=== PATIENT | male | born 1935 | race Two or more races ===

== ENCOUNTER 2020-10-06 06:48 | Inpatient (IN) | payer OTHER ==
[2020-10-06 06:55] VITALS: BMI 26.4
[2020-10-06] MEDS ORDERED: LACTATED RINGERS SOLUTION 1,000 ML/1,000 ML INFUS.BAG IV SCH (08:00)
[2020-10-06 09:02] LABS: BASO % 0.1 % (0-2.0); EOS % 0.8 % (0-4.5); HEMOGLOBIN 11.6 GM/dL (11.7-16.9); LYMPH % 4.7 % (8-40); MCH 30.6 pg (25.7-33.7); MCHC 33.2 g/dl (32.0-35.9); MEAN CELL VOLUME 92.2 fl (80-96); MEAN PLT VOLUME 8.1 fl (7.5-11.1); NEUT % 87.4 % (42.8-82.8); PLATELET COUNT 239 10^3/uL (134-434); RBC 3.79 M/mm3 (4.00-5.60); RDW 16.1 % (11.9-15.9); WHITE BLOOD COUNT 15.9 K/mm3 (4.0-10.0)
[2020-10-06 09:17] LABS: INR 1.93 (0.83-1.09); PROTHROMBIN TIME (PATIENT) 23.3 SEC (9.7-13.0)
[2020-10-06 09:20] LABS: ACTIVATED PTT 27.8 SECONDS (25.2-36.5)
[2020-10-06 09:24] LABS: CHLORIDE 110 mmol/L (98-107); SODIUM 142 mmol/L (136-145)
[2020-10-06 09:26] LABS: ANION GAP 8 MMOL/L (8-16); BLOOD UREA NITROGEN 41.3 mg/dL (7-18); CALCIUM 8.1 mg/dL (8.5-10.1); CO2 24 mmol/L (21-32); GLUCOSE,RANDOM 129 mg/dL (74-106); MAGNESIUM 2.3 mg/dL (1.8-2.4)
[2020-10-06 09:27] LABS: ALBUMIN 2.8 g/dl (3.4-5.0)
[2020-10-06 09:29] LABS: CREATININE 1.2 mg/dL (0.55-1.3); SGOT/AST 13 U/L (15-37); SGPT/ALT 11 U/L (13-61)
[2020-10-06 09:31] LABS: BILIRUBIN,TOTAL 0.8 mg/dL (0.2-1); TOT PROT 5.5 g/dl (6.4-8.2)
[2020-10-06 09:32] LABS: ALK PHOS 114 U/L (45-117)
[2020-10-06 11:27] LABS: BASO % 0.1 % (0-2.0); EOS % 0.3 % (0-4.5); HEMATOCRIT 31.7 % (35.4-49); HEMOGLOBIN 10.3 GM/dL (11.7-16.9); LYMPH % 3.2 % (8-40); MCH 30.3 pg (25.7-33.7); MCHC 32.4 g/dl (32.0-35.9); MEAN CELL VOLUME 93.6 fl (80-96); MEAN PLT VOLUME 8.3 fl (7.5-11.1); MONO % 6.1 % (3.8-10.2); NEUT % 90.3 % (42.8-82.8); PLATELET COUNT 201 10^3/uL (134-434); RBC 3.39 M/mm3 (4.00-5.60); RDW 15.9 % (11.9-15.9); WHITE BLOOD COUNT 15.3 K/mm3 (4.0-10.0)
[2020-10-06] MEDS ORDERED: ACETAMINOPHEN 325 MG TABLET (FP) PO PRN (12:34)
[2020-10-06] MEDS ORDERED: D5-1/2NS+10 MEQ KCL - 10 MEQ/1,000 ML INFUS.BAG IV SCH ×2 (13:00→13:18)
[2020-10-06] MEDS ORDERED: HUM PROTHROMBIN CPLX(PCC)4FACT 1,000 UNIT/40 ML VIAL IV ONE (13:02)
[2020-10-06] MEDS ORDERED: CARBIDOPA/LEVODOPA 25/100 TABLET (FP) ONE (13:16)
[2020-10-06] MEDS ORDERED: PANTOPRAZOLE SODIUM 40 MG VIAL ONE (13:17)
[2020-10-06] MEDS ORDERED: PANTOPRAZOLE SODIUM 40 MG VIAL IVPUSH SCH (13:45)
[2020-10-06] MEDS ORDERED: [UNRECOGNIZED DRUG - OTHER] IVPB ONE (14:00)
[2020-10-06] MEDS ORDERED: HUM PROTHROMBIN CPLX IVPB ONE (14:00)
[2020-10-06] MEDS ORDERED: CARBIDOPA/LEVODOPA 25/100 TABLET (FP) PO SCH (14:00)
[2020-10-06 14:33] LABS: IRON SERUM 73 ug/dL (50-175); TOTAL IRON BINDING CAPACITY 200 ug/dL (250-450)
[2020-10-06 15:42] VITALS: PULSE 70
[2020-10-06 15:57] LABS: URINE APPEARANCE CLEAR; URINE BILIRUBIN NEGATIVE (NEGATIVE); URINE COLOR DK YELLOW; URINE GLUCOSE (UA) NEGATIVE (NEGATIVE); URINE KETONE TRACE (NEGATIVE); URINE LEUK ESTERASE NEGATIVE (NEGATIVE); URINE NITRITE NEGATIVE (NEGATIVE); URINE PROTEIN TRACE (NEGATIVE)
[2020-10-06 17:03] VITALS: BP 118/82; TEMP 97.5
[2020-10-07] MEDS ORDERED: CHOLECALCIFEROL (VIT D3) 1,000 UNIT (25 MCG) TABLET PO SCH (10:00)
[2020-10-07] MEDS ORDERED: MAGNESIUM OXIDE 400 MG TABLET (FP) PO SCH (10:00)
[2020-10-07] MEDS ORDERED: FINASTERIDE 5 MG TABLET (FP) PO SCH (10:00)
== END 2020-10-06 17:18 | disposition short-term general hospital (02) | DRG 813 ==
LOC: JER 06:48 → JERBED 07:34
PROVIDERS: ADMIT Internal Medicine; ATTEND Internal Medicine
DX: D68.32 Hemorrhagic disorder due to extrinsic circulating anticoagulants (principal); K92.2 Gastrointestinal hemorrhage, unspecified; D62 Acute posthemorrhagic anemia; G20 Parkinson's disease; I48.91 Unspecified atrial fibrillation; Z95.0 Presence of cardiac pacemaker; D72.829 Elevated white blood cell count, unspecified; I95.9 Hypotension, unspecified
CPT/HCPCS: 36415; 36430; 36511; 71045-TC-FY; 74174-TC; 80053; 81003; 82272; 82550; 82728; 83540; 83550; 83735; 84484; 85025; 85610; 85730; 86850; 86900; 86901; 86922; 87086; 93005; 93010; 99291; 99292; C9132; C9803; P9038; P9058; U0003; U0005

== ENCOUNTER 2021-01-02 04:29 | Emergency (ER) | payer OTHER ==
[2021-01-02 04:49] VITALS: BP 174/105; PULSE 79; TEMP 98.7; BMI 31.6
== END 2021-01-02 12:59 ==
LOC: JER 04:29
DX: S09.90XA Unspecified injury of head, initial encounter (principal); W05.0XXA Fall from non-moving wheelchair, initial encounter
CPT/HCPCS: 70450-TC; 72125-TC; 93005; 93010; 99285-25

== ENCOUNTER 2021-02-03 02:42 | Inpatient (IN) | payer OTHER ==
[2021-02-03 04:22] LABS: EPI CELLS 1 /uL (0-25.1); HYALINE CASTS 3 /uL (0-3.1); PH,URINE 6.5 (5.0-8.0); URINE APPEARANCE CLEAR; URINE BACTERIA 115 /uL (0-1359); URINE BILIRUBIN NEGATIVE (NEGATIVE); URINE COLOR YELLOW; URINE GLUCOSE (UA) NEGATIVE (NEGATIVE); URINE KETONE NEGATIVE (NEGATIVE); URINE LEUK ESTERASE 3+ (NEGATIVE); URINE NITRITE NEGATIVE (NEGATIVE); URINE PROTEIN NEGATIVE (NEGATIVE); URINE RBC 17 /uL (0-23.9); URINE UROBILINOGEN 0.2 mg/dL (0.2-1.0); URINE WBC 679 /uL (0-25.8)
[2021-02-03 04:29] LABS: BASO % 0.6 % (0-2.0); EOS % 2.2 % (0-4.5); HEMATOCRIT 39.5 % (35.4-49); HEMOGLOBIN 13.1 GM/dL (11.7-16.9); LYMPH % 8.1 % (8-40); MCH 29.5 pg (25.7-33.7); MCHC 33.1 g/dl (32.0-35.9); MEAN CELL VOLUME 89.3 fl (80-96); MEAN PLT VOLUME 7.5 fl (7.5-11.1); MONO % 8.2 % (3.8-10.2); NEUT % 80.9 % (42.8-82.8); PLATELET COUNT 250 10^3/uL (134-434); RBC 4.43 M/mm3 (4.00-5.60); RDW 17.2 % (11.9-15.9); WHITE BLOOD COUNT 7.2 K/mm3 (4.0-10.0)
[2021-02-03 04:36] LABS: INR 1.27 (0.83-1.09); PROTHROMBIN TIME (PATIENT) 14.9 SEC (9.7-13.0)
[2021-02-03] MEDS ORDERED: SODIUM CHLORIDE 0.9% 500 ML INFUS.BAG IV ONE (04:36)
[2021-02-03] MEDS ORDERED: ACETAMINOPHEN 1000 MG/100 ML VIAL IVPB ONE (04:37)
[2021-02-03 04:39] LABS: ACTIVATED PTT 30.8 SECONDS (25.2-36.5)
[2021-02-03 04:48] LABS: CHLORIDE 108 mmol/L (98-107); SODIUM 140 mmol/L (136-145)
[2021-02-03 04:50] LABS: ALBUMIN 3.8 g/dl (3.4-5.0); ANION GAP 4 MMOL/L (8-16); BLOOD UREA NITROGEN 24.9 mg/dL (7-18); CALCIUM 9.2 mg/dL (8.5-10.1); CO2 29 mmol/L (21-32); GLUCOSE,RANDOM 92 mg/dL (74-106)
[2021-02-03 04:53] LABS: CREATININE 1.1 mg/dL (0.55-1.3); SGPT/ALT 8 U/L (13-61)
[2021-02-03 04:54] LABS: SGOT/AST 20 U/L (15-37)
[2021-02-03 04:55] LABS: BILIRUBIN,TOTAL 0.8 mg/dL (0.2-1); TOT PROT 7.2 g/dl (6.4-8.2)
[2021-02-03 04:56] LABS: ALK PHOS 157 U/L (45-117)
[2021-02-03] MEDS ORDERED: ACETAMINOPHEN INJECTION 100 ML IVPB ONE (05:04)
[2021-02-03] MEDS ORDERED: CEFTRIAXONE 1 GM/50 ML BAG ONE (05:05)
[2021-02-03] MEDS ORDERED: PIPERACILLIN/TAZOB 4.5 GM 4.5 GM in DEXTROSE 5%-WATER 100 ML IVPB ONE (05:39)
[2021-02-03] MEDS ORDERED: PIPERACILLIN/TAZOB 4.5 GM 4.5 GM/100 ML BAG IVPB ONE (06:22)
[2021-02-03] MEDS ORDERED: ACETAMINOPHEN 325 MG TABLET (FP) PO PRN (08:26)
[2021-02-03] MEDS ORDERED: MELATONIN 5 MG TABLETS PO PRN (08:39)
[2021-02-03] MEDS ORDERED: SENNOSIDES 8.6MG TABLET (FP) PO PRN (08:40)
[2021-02-03] MEDS ORDERED: MAGNESIUM OXIDE 400 MG TABLET (FP) ONE (09:07)
[2021-02-03] MEDS ORDERED: FUROSEMIDE 40 MG TABLET (FP) ONE (09:07)
[2021-02-03] MEDS ORDERED: CHOLECALCIFEROL (VIT D3) 1,000 UNIT (25 MCG) TABLET ONE (09:08)
[2021-02-03] MEDS ORDERED: CARBIDOPA/LEVODOPA 25/100 TABLET (FP) ONE (09:08)
[2021-02-03] MEDS: CHOLECALCIFEROL (VIT D3) 1,000 UNIT (25 MCG) TABLET PO SCH (09:13)
[2021-02-03] MEDS: MAGNESIUM OXIDE 400 MG TABLET (FP) PO SCH (09:13)
[2021-02-03] MEDS ORDERED: FUROSEMIDE 40 MG TABLET (FP) PO SCH (10:00)
[2021-02-03] MEDS ORDERED: FINASTERIDE 5 MG TABLET (FP) PO SCH (10:00)
[2021-02-03] MEDS: OMEGA-3 ACID ETHYL ESTERS (FATTY-ACIDS) 1 GM CAPSULE (FP) PO SCH ×2 (10:10→21:17)
[2021-02-03] MEDS: FINASTERIDE 5 MG TABLET (FP) PO SCH (11:14)
[2021-02-03] MEDS ORDERED: LOSARTAN POTASSIUM 50 MG TABLET PO SCH (17:45)
[2021-02-03] MEDS ORDERED: LOSARTAN POTASSIUM 25 MG TABLET PO SCH (18:00)
[2021-02-03 18:25] VITALS: BMI 25.2
[2021-02-03] MEDS: QUEtiapine FUMARATE 50 MG TABLET PO SCH (21:17)
[2021-02-03] MEDS: APIXABAN 2.5 MG TABLET PO SCH (21:17)
[2021-02-04] MEDS ORDERED: cefTRIAXone SODIUM 1 GM VIAL ONE (08:18)
[2021-02-04] MEDS ORDERED: DEXTROSE 5%-WATER - 50 ML IVPB ONE (08:19)
[2021-02-04] MEDS ORDERED: CEFTRIAXONE 1 GM in DEXTROSE 5%-WATER - 50 ML IVPB SCH (10:00)
[2021-02-04] MEDS: MAGNESIUM OXIDE 400 MG TABLET (FP) PO SCH ×2 (10:54→13:39)
[2021-02-04] MEDS: LOSARTAN POTASSIUM 25 MG TABLET PO SCH ×3 (10:54→21:33)
[2021-02-04] MEDS: FINASTERIDE 5 MG TABLET (FP) PO SCH ×2 (10:54→13:38)
[2021-02-04] MEDS: APIXABAN 2.5 MG TABLET PO SCH ×3 (10:54→21:33)
[2021-02-04] MEDS: OMEGA-3 ACID ETHYL ESTERS (FATTY-ACIDS) 1 GM CAPSULE (FP) PO SCH ×2 (10:54→21:33)
[2021-02-04] MEDS: CHOLECALCIFEROL (VIT D3) 1,000 UNIT (25 MCG) TABLET PO SCH ×2 (10:55→13:39)
[2021-02-04] MEDS: AMPICILLIN NA/SULBACTAM NA 1.5 GM in SODIUM CHLORIDE 100 ML IVPB SCH (18:55)
[2021-02-04] MEDS: QUEtiapine FUMARATE 50 MG TABLET PO SCH (21:33)
[2021-02-04] MEDS ORDERED: MELATONIN 5 MG TABLETS PO SCH (22:00)
[2021-02-05] MEDS ORDERED: SODIUM CHLORIDE 100 ML IVPB ONE ×2 (01:45→08:21)
[2021-02-05] MEDS ORDERED: AMPICILLIN NA/SULBACTAM NA 1.5 GM VIAL ONE ×2 (01:45→08:20)
[2021-02-05] MEDS: AMPICILLIN NA/SULBACTAM NA 1.5 GM in SODIUM CHLORIDE 100 ML IVPB SCH ×2 (02:15→10:14)
[2021-02-05 06:22] VITALS: PULSE 70
[2021-02-05 06:57] LABS: BASO % 0.8 % (0-2.0); EOS % 5.3 % (0-4.5); HEMATOCRIT 36.1 % (35.4-49); HEMOGLOBIN 12.3 GM/dL (11.7-16.9); LYMPH % 13.9 % (8-40); MCH 30.5 pg (25.7-33.7); MCHC 34.2 g/dl (32.0-35.9); MEAN CELL VOLUME 89.3 fl (80-96); MEAN PLT VOLUME 8.3 fl (7.5-11.1); MONO % 8.5 % (3.8-10.2); NEUT % 71.5 % (42.8-82.8); PLATELET COUNT 242 10^3/uL (134-434); RBC 4.04 M/mm3 (4.00-5.60); RDW 16.8 % (11.9-15.9); WHITE BLOOD COUNT 5.3 K/mm3 (4.0-10.0)
[2021-02-05 08:30] VITALS: BP 127/81; TEMP 97.7
[2021-02-05] MEDS: MAGNESIUM OXIDE 400 MG TABLET (FP) PO SCH (10:13)
[2021-02-05] MEDS: OMEGA-3 ACID ETHYL ESTERS (FATTY-ACIDS) 1 GM CAPSULE (FP) PO SCH (10:13)
[2021-02-05] MEDS: CHOLECALCIFEROL (VIT D3) 1,000 UNIT (25 MCG) TABLET PO SCH (10:13)
[2021-02-05] MEDS: APIXABAN 2.5 MG TABLET PO SCH (10:13)
[2021-02-05] MEDS: LOSARTAN POTASSIUM 25 MG TABLET PO SCH (10:14)
[2021-02-05] MEDS: FINASTERIDE 5 MG TABLET (FP) PO SCH (10:22)
[2021-02-05] MEDS ORDERED: AMOXICILLIN 500 MG CAPSULE (FP) PO SCH (14:00)
== END 2021-02-05 15:01 | disposition home or self-care (01) | DRG 690 ==
LOC: JER 02:42 → JERBED 05:40 → J4W 17:25
PROVIDERS: ADMIT Internal Medicine; ATTEND Internal Medicine
DX: N39.0 Urinary tract infection, site not specified (principal); I50.32 Chronic diastolic (congestive) heart failure; I31.8 Other specified diseases of pericardium; G20 Parkinson's disease; I48.91 Unspecified atrial fibrillation; Z79.01 Long term (current) use of anticoagulants; E78.5 Hyperlipidemia, unspecified; R55 Syncope and collapse; I11.0 Hypertensive heart disease with heart failure; C61 Malignant neoplasm of prostate; Z95.0 Presence of cardiac pacemaker; G47.00 Insomnia, unspecified; I34.0 Nonrheumatic mitral (valve) insufficiency; I35.1 Nonrheumatic aortic (valve) insufficiency; I36.1 Nonrheumatic tricuspid (valve) insufficiency; K59.00 Constipation, unspecified; S06.0X0A Concussion without loss of consciousness, initial encounter; W17.89XA Other fall from one level to another, initial encounter; Y93.89 Activity, other specified; Y92.89 Other specified places as the place of occurrence of the external cause; Y99.8 Other external cause status
CPT/HCPCS: 36415; 70450-TC; 71045-TC-FY; 71250-TC; 72125-TC; 80053; 81003; 84484; 85025; 85610; 85730; 86850; 86900; 86901; 87086; 87186; 93005; 93010; 93306-TC; 97116-GP; 97162-GP; 99285-25; C9803; J0131; U0003; U0005

== ENCOUNTER 2023-10-12 08:58 | Emergency (ER) | payer OTHER ==
[2023-10-12 09:29] VITALS: RESP 18; BMI 23.6
[2023-10-12] MEDS ORDERED: LIDOCAINE HCL 2% JELLY 11 ML TP ONE (10:39)
[2023-10-12] MEDS: LIDOCAINE HCL 2% JELLY 10 ML CARTRIDGE UR ONE (10:40)
[2023-10-12 11:41] LABS: URINE APPEARANCE TURBID; URINE BILIRUBIN NEGATIVE (NEGATIVE); URINE COLOR AMBER; URINE GLUCOSE (UA) NEGATIVE (NEGATIVE); URINE KETONE NEGATIVE (NEGATIVE)
[2023-10-12 11:42] LABS: URINE LEUK ESTERASE 4+ (NEGATIVE); URINE NITRITE POSITIVE (NEGATIVE); URINE PROTEIN 1+ (NEGATIVE)
[2023-10-12] MEDS ORDERED: CEFTRIAXONE 1 GM/50 ML BAG ONE (13:22)
[2023-10-12] MEDS: CEFTRIAXONE 1 GM in DEXTROSE 5%-WATER - 100 ML IVPB ONE (13:26)
[2023-10-12 13:43] LABS: BASO % 0.4 % (0-2.0); EOS % 4.7 % (0-4.5); HEMATOCRIT 37.9 % (35.4-49); LYMPH % 9.3 % (8-40); MCH 32.3 pg (25.7-33.7); MCHC 34.3 g/dl (32.0-35.9); MEAN CELL VOLUME 94.1 fl (80-96); MEAN PLT VOLUME 7.5 fl (7.5-11.1); MONO % 8.7 % (3.8-10.2); NEUT % 76.9 % (42.8-82.8); PLATELET COUNT 198 10^3/uL (134-434); RBC 4.02 M/mm3 (4.00-5.60); RDW 15.6 % (11.9-15.9); WHITE BLOOD COUNT 6.5 K/mm3 (4.0-10.0)
[2023-10-12 14:03] LABS: POTASSIUM 4.2 mmol/L (3.5-5.1)
[2023-10-12 14:10] LABS: CALCIUM 9.1 mg/dL (8.5-10.1)
[2023-10-12 14:11] LABS: ALBUMIN 3.6 g/dl (3.4-5.0); BLOOD UREA NITROGEN 25.4 mg/dL (7-18)
[2023-10-12 14:15] LABS: TOT PROT 6.9 g/dl (6.4-8.2)
[2023-10-12 14:21] LABS: CREATININE 0.9 mg/dL (0.55-1.3)
[2023-10-13 03:48] VITALS: TEMP 98
[2023-10-13 03:49] VITALS: BP 122/75; PULSE 78
== END 2023-10-13 03:57 ==
LOC: JER 08:58
PROC: 0T2BX0Z Change Drainage Device in Bladder, External Approach (ICD-10-PCS; principal; 2023-10-12)
PROC: 3E03329 Introduction of Other Anti-infective into Peripheral Vein, Percutaneous Approach (ICD-10-PCS; 2023-10-12)
DX: T83.511A Infection and inflammatory reaction due to indwelling urethral catheter, initial encounter (principal); N39.0 Urinary tract infection, site not specified; R31.9 Hematuria, unspecified
CPT/HCPCS: 36415; 80053; 81003; 81015; 85025; 87086; 87186; 99284-25

== ENCOUNTER 2024-01-30 17:17 | Inpatient (IN) | payer OTHER ==
[2024-01-30 17:46] VITALS: BMI 22.8
[2024-01-30] MEDS ORDERED: ACETAMINOPHEN INJECTION 100 ML ONE (17:47)
[2024-01-30] MEDS: ACETAMINOPHEN 1000 MG/100 ML BAG IVPB ONE (18:25)
[2024-01-30] MEDS: SODIUM CHLORIDE 0.9% 500 ML INFUS.BAG IV ONE (18:25)
[2024-01-30 18:57] LABS: HEMATOCRIT 35.2 % (35.4-49); HEMOGLOBIN 11.7 GM/dL (11.7-16.9); MCH 31.5 pg (25.7-33.7); MCHC 33.1 g/dl (32.0-35.9); MEAN CELL VOLUME 95.2 fl (80-96); MEAN PLT VOLUME 7.7 fl (7.5-11.1); PLATELET COUNT 204 10^3/uL (134-434); RDW 16.1 % (11.9-15.9); WHITE BLOOD COUNT 12.9 K/mm3 (4.0-10.0)
[2024-01-30 18:57] LABS: VENOUS BASE EXCESS -4.1 mmol/L (-2-2); VENOUS PCO2 26.8 mmHg (38-52); VENOUS PH 7.453 (7.310-7.410)
[2024-01-30] MEDS ORDERED: PIPERACILLIN/TAZOB 4.5 GM 4.5 GM/100 ML BAG IVPB ONE (18:59)
[2024-01-30] MEDS: PIPERACILLIN/TAZOB 4.5 GM 4.5 GM in DEXTROSE 5%-WATER 100 ML IVPB ONE (19:00)
[2024-01-30 19:04] LABS: INR 1.44 (0.83-1.09); PROTHROMBIN TIME (PATIENT) 16.4 SEC (9.7-13.0)
[2024-01-30] MEDS: ACETAMINOPHEN 500 MG TABLET (FP) PO ONE (19:06)
[2024-01-30 19:27] LABS: POTASSIUM 3.9 mmol/L (3.5-5.1)
[2024-01-30 19:29] LABS: BLOOD UREA NITROGEN 40.4 mg/dL (7-18); CALCIUM 8.9 mg/dL (8.5-10.1)
[2024-01-30 19:32] LABS: CREATININE 2.1 mg/dL (0.55-1.3)
[2024-01-30 19:34] LABS: TOT PROT 6.1 g/dl (6.4-8.2)
[2024-01-30] MEDS ORDERED: VANCOMYCIN 1 GRAM (PRE-DOCKED) 1,000 MG/250 ML BAG IVPB ONE (19:34)
[2024-01-30 19:37] LABS: LACTIC ACID 5.7 mmol/L (0.4-2.0)
[2024-01-30] MEDS: VANCOMYCIN 1,000 MG in DEXTROSE 5%-WATER - 250 ML IVPB ONE (19:45)
[2024-01-30] MEDS: LACTATED RINGERS SOLUTION 1000 ML INFUS.BAG IV ONE (19:53)
[2024-01-30 20:09] LABS: ANISOCYTOSIS 2+; MACROCYTOSIS 0; OVALOCYTE 2+
[2024-01-30 20:53] LABS: EPI CELLS 3 /uL (0-25.1); HYALINE CASTS 7 /uL (0-3.1); PH,URINE 8.5 (5.0-8.0); URINE APPEARANCE TURBID; URINE BILIRUBIN 1+ (NEGATIVE); URINE COLOR RED; URINE GLUCOSE (UA) NEGATIVE (NEGATIVE); URINE KETONE NEGATIVE (NEGATIVE); URINE LEUK ESTERASE 3+ (NEGATIVE); URINE NITRITE POSITIVE (NEGATIVE); URINE PROTEIN 2+ (NEGATIVE); URINE UROBILINOGEN 0.2 mg/dL (0.2-1.0); URINE WBC 822 /uL (0-25.8)
[2024-01-30 21:21] LABS: URINE RBC 24894.8 /uL (0-23.9)
[2024-01-30 21:22] LABS: URINE BACTERIA 2695.1 /uL (0-1359); YEAST NONE SEEN (NEGATIVE)
[2024-01-30 22:15] LABS: LACTIC ACID 6.8 mmol/L (0.4-2.0)
[2024-01-30] MEDS: SODIUM CHLORIDE 1,000 ML IV STA (23:25)
[2024-01-30] MEDS: THIAMINE HCL 200 MG/2 ML VIAL IVPB ONE (23:26)
[2024-01-31] MEDS: SODIUM CHLORIDE 0.45% 1,000 ML IV SCH ×2 (01:22→07:15)
[2024-01-31] MEDS: PIPERACILLIN/TAZOB 3.375 GM 50 ML IVPB SCH (01:22)
[2024-01-31] MEDS ORDERED: PIPERACILLIN/TAZOB 3.375 GM 3.375 GM in DEXTROSE 5%-WATER - 50 ML IVPB SCH (02:00)
[2024-01-31 05:56] LABS: HEMATOCRIT 31.5 % (35.4-49); HEMOGLOBIN 10.2 GM/dL (11.7-16.9); MCH 31.9 pg (25.7-33.7); MCHC 32.5 g/dl (32.0-35.9); MEAN PLT VOLUME 7.9 fl (7.5-11.1); PLATELET COUNT 161 10^3/uL (134-434); RBC 3.22 M/mm3 (4.00-5.60); RDW 16.5 % (11.9-15.9); WHITE BLOOD COUNT 28.8 K/mm3 (4.0-10.0)
[2024-01-31 06:14] LABS: CHLORIDE 111 mmol/L (98-107); POTASSIUM 4.5 mmol/L (3.5-5.1); SODIUM 140 mmol/L (136-145)
[2024-01-31 06:17] LABS: ALBUMIN 2.7 g/dl (3.4-5.0); ANION GAP 10 mmol/L (4-13); BLOOD UREA NITROGEN 43.6 mg/dL (7-18); CO2 19 mmol/L (21-32); GLUCOSE,RANDOM 68 mg/dL (74-106); MAGNESIUM 1.7 mg/dL (1.8-2.4)
[2024-01-31 06:20] LABS: CREATININE 2.4 mg/dL (0.55-1.3); PHOSPHOROUS 2.7 mg/dL (2.5-4.9); SGOT/AST 18 U/L (15-37)
[2024-01-31 06:21] LABS: BILIRUBIN,TOTAL 0.8 mg/dL (0.2-1)
[2024-01-31 06:22] LABS: TOT PROT 5.6 g/dl (6.4-8.2)
[2024-01-31 06:29] LABS: ALK PHOS 88 U/L (45-117); SGPT/ALT < 6 U/L (13-61)
[2024-01-31 06:45] LABS: LACTIC ACID 6.5 mmol/L (0.4-2.0)
[2024-01-31 08:50] LABS: ANISOCYTOSIS 1+; MACROCYTOSIS 0
[2024-01-31] MEDS: FUROSEMIDE 40 MG/4 ML INJECTABLE VIAL IVPUSH ONE (09:25)
[2024-01-31] MEDS: ARTIFICIAL TEARS OPHTHALMIC DROPS OU SCH (09:32)
[2024-01-31 09:53] LABS: ARTERIAL BLD GAS O2 SATURATION 99.5 % (95-98); ARTERIAL BLOOD GAS BASE EXCESS -8.1 mmol/L (-2-2); ARTERIAL BLOOD GAS PO2 200.2 mmHg (80-100); ARTERIAL BLOOD GAS pH 7.461 (7.350-7.450)
[2024-01-31] MEDS ORDERED: ERTAPENEM SODIUM 1 GM in SODIUM CHLORIDE 50 ML IVPB SCH (10:00)
[2024-01-31] MEDS: ALBUTEROL SO4 2.5/IPRATROPIUM 0.5 INH SOL 3 ML VIAL.NEB. NEB ONE (10:00)
[2024-01-31] MEDS: MEROPENEM-0.9% SODIUM CHLORIDE 1 GM/50 ML BAG IVPB SCH ×2 (10:40→17:51)
[2024-01-31 13:43] LABS: LACTIC ACID 4.9 mmol/L (0.4-2.0)
[2024-01-31] MEDS: SODIUM CHLORIDE 1,000 ML IV SCH (15:16)
[2024-01-31] MEDS: MEROPENEM-0.9% SODIUM CHLORIDE 500 MG/50 ML BAG IVPB SCH (17:45)
[2024-01-31] MEDS ORDERED: VANCOMYCIN 1 GM PREMIX (F) 1 GM/200 ML BAG IVPB SCH (20:00)
[2024-01-31] MEDS ORDERED: VANCOMYCIN/WATER FOR INJ (PEG) 1 GM/200 ML BAG IVPB SCH (20:00)
[2024-02-01 07:40] LABS: HEMATOCRIT 30.3 % (35.4-49); HEMOGLOBIN 10.1 GM/dL (11.7-16.9); MCH 31.7 pg (25.7-33.7); MCHC 33.3 g/dl (32.0-35.9); MEAN CELL VOLUME 95.4 fl (80-96); MEAN PLT VOLUME 9.7 fl (7.5-11.1); PLATELET COUNT 144 10^3/uL (134-434); RBC 3.18 M/mm3 (4.00-5.60); RDW 16.4 % (11.9-15.9); WHITE BLOOD COUNT 22.1 K/mm3 (4.0-10.0)
[2024-02-01 08:10] LABS: POTASSIUM 4.2 mmol/L (3.5-5.1)
[2024-02-01 08:14] LABS: CALCIUM 7.5 mg/dL (8.5-10.1)
[2024-02-01 08:15] LABS: ALBUMIN 2.3 g/dl (3.4-5.0); BLOOD UREA NITROGEN 58.8 mg/dL (7-18)
[2024-02-01 08:19] LABS: BILIRUBIN,TOTAL 0.7 mg/dL (0.2-1)
[2024-02-01 08:20] LABS: TOT PROT 5.2 g/dl (6.4-8.2)
[2024-02-01 09:47] LABS: ANISOCYTOSIS 0; MACROCYTOSIS 0
[2024-02-01] MEDS: LACTATED RINGERS SOLUTION 1,000 ML/1,000 ML INFUS.BAG IV SCH (17:43)
[2024-02-02] MEDS: hydrALAZINE HCL 20 MG/ML VIAL IVPUSH ONE (07:04)
[2024-02-02] MEDS: DEXTROSE 5%-0.45% SALINE 1,000 ML IV SCH (14:27)
[2024-02-02] MEDS ORDERED: CEFTRIAXONE 2 GM-D5W BAG 2 GM/50 ML BAG IVPB SCH (19:12)
[2024-02-02] MEDS: CEFTRIAXONE 2 GM in DEXTROSE 5%-WATER 100 ML IVPB SCH (19:15)
[2024-02-02] MEDS: CEFTRIAXONE 2 GM-D5W BAG 2 GM/50 ML BAG IVPB SCH (20:14)
[2024-02-02] MEDS: METOPROLOL TARTRATE 5 MG/5 ML VIAL IVPUSH PRN (20:48)
[2024-02-03] MEDS: hydrALAZINE HCL 20 MG/ML VIAL IVPUSH ONE (04:26)
[2024-02-03] MEDS: CEFTRIAXONE 2 GM in DEXTROSE 5%-WATER 100 ML IVPB SCH (09:45)
[2024-02-03 11:03] LABS: HEMATOCRIT 34.8 % (35.4-49); HEMOGLOBIN 11.4 GM/dL (11.7-16.9); MCH 31.2 pg (25.7-33.7); MCHC 32.7 g/dl (32.0-35.9); MEAN CELL VOLUME 95.6 fl (80-96); MEAN PLT VOLUME 9.1 fl (7.5-11.1); PLATELET COUNT 152 10^3/uL (134-434); RBC 3.64 M/mm3 (4.00-5.60); WHITE BLOOD COUNT 19.1 K/mm3 (4.0-10.0)
[2024-02-03 11:24] LABS: POTASSIUM 3.8 mmol/L (3.5-5.1)
[2024-02-03 11:26] LABS: CALCIUM 8.4 mg/dL (8.5-10.1)
[2024-02-03 11:27] LABS: ALBUMIN 2.4 g/dl (3.4-5.0); BLOOD UREA NITROGEN 43.8 mg/dL (7-18)
[2024-02-03 11:30] LABS: CREATININE 0.9 mg/dL (0.55-1.3)
[2024-02-03 11:31] LABS: TOT PROT 5.6 g/dl (6.4-8.2)
[2024-02-03 11:39] LABS: ANISOCYTOSIS 0; MACROCYTOSIS 0; OVALOCYTE 1+
[2024-02-03 11:40] LABS: PLATELET ESTIMATE ADEQUATE
[2024-02-04] MEDS: hydrALAZINE HCL 20 MG/ML VIAL IVPUSH ONE (03:19)
[2024-02-04 08:16] LABS: BASO % 0.2 % (0-2.0); EOS % 0.9 % (0-4.5); HEMATOCRIT 36.8 % (35.4-49); HEMOGLOBIN 12.3 GM/dL (11.7-16.9); LYMPH % 3.4 % (8-40); MCH 32.7 pg (25.7-33.7); MCHC 33.4 g/dl (32.0-35.9); MEAN CELL VOLUME 97.8 fl (80-96); MEAN PLT VOLUME 9.3 fl (7.5-11.1); MONO % 5.5 % (3.8-10.2); PLATELET COUNT 142 10^3/uL (134-434); RBC 3.76 M/mm3 (4.00-5.60); RDW 16.1 % (11.9-15.9); WHITE BLOOD COUNT 11.9 K/mm3 (4.0-10.0)
[2024-02-04 08:43] LABS: MAGNESIUM 1.9 mg/dL (1.8-2.4)
[2024-02-04 08:45] LABS: ALBUMIN 2.5 g/dl (3.4-5.0); BLOOD UREA NITROGEN 42.4 mg/dL (7-18); CALCIUM 8.6 mg/dL (8.5-10.1)
[2024-02-04 08:48] LABS: PHOSPHOROUS 2.4 mg/dL (2.5-4.9); TOT PROT 5.9 g/dl (6.4-8.2)
[2024-02-04 09:44] LABS: ANISOCYTOSIS 0; MACROCYTOSIS 0
[2024-02-04] MEDS: DEXTROSE 5%-WATER - 1,000 ML IV SCH (17:25)
[2024-02-05] MEDS: hydrALAZINE HCL 20 MG/ML VIAL IVPUSH ONE (02:34)
[2024-02-05 08:11] LABS: POTASSIUM 4.4 mmol/L (3.5-5.1)
[2024-02-05 08:12] LABS: ALBUMIN 2.4 g/dl (3.4-5.0); BLOOD UREA NITROGEN 35.7 mg/dL (7-18); CALCIUM 8.5 mg/dL (8.5-10.1)
[2024-02-05 08:16] LABS: CREATININE 0.9 mg/dL (0.55-1.3)
[2024-02-05 08:18] LABS: BILIRUBIN,TOTAL 0.7 mg/dL (0.2-1); TOT PROT 5.8 g/dl (6.4-8.2)
[2024-02-05] MEDS: MAGNESIUM OXIDE 400 MG TABLET (FP) PO SCH (10:51)
[2024-02-05] MEDS: FINASTERIDE 5 MG TABLET (FP) PO SCH (10:52)
[2024-02-05] MEDS: APIXABAN 2.5 MG TABLET PO SCH (10:52)
[2024-02-05] MEDS: CARBIDOPA/LEVODOPA 25/100 TABLET (FP) PO SCH (10:53)
[2024-02-06 08:24] LABS: BASO % 0.3 % (0-2.0); EOS % 2.5 % (0-4.5); HEMATOCRIT 34.9 % (35.4-49); HEMOGLOBIN 12.1 GM/dL (11.7-16.9); LYMPH % 4.7 % (8-40); MCH 32.8 pg (25.7-33.7); MCHC 34.7 g/dl (32.0-35.9); MEAN CELL VOLUME 94.6 fl (80-96); MEAN PLT VOLUME 8.7 fl (7.5-11.1); MONO % 7.4 % (3.8-10.2); NEUT % 85.1 % (42.8-82.8); PLATELET COUNT 173 10^3/uL (134-434); RBC 3.69 M/mm3 (4.00-5.60); RDW 16.2 % (11.9-15.9); WHITE BLOOD COUNT 9.5 K/mm3 (4.0-10.0)
[2024-02-06 08:42] LABS: CHLORIDE 119 mmol/L (98-107); POTASSIUM 3.9 mmol/L (3.5-5.1); SODIUM 148 mmol/L (136-145)
[2024-02-06 08:46] LABS: ALBUMIN 2.6 g/dl (3.4-5.0); ANION GAP 3 mmol/L (4-13); BLOOD UREA NITROGEN 26.9 mg/dL (7-18); CALCIUM 8.4 mg/dL (8.5-10.1); CO2 27 mmol/L (21-32); GLUCOSE,RANDOM 80 mg/dL (74-106)
[2024-02-06 08:49] LABS: CREATININE 0.9 mg/dL (0.55-1.3); SGOT/AST 20 U/L (15-37)
[2024-02-06 08:51] LABS: TOT PROT 5.9 g/dl (6.4-8.2)
[2024-02-06 08:52] LABS: ALK PHOS 115 U/L (45-117); SGPT/ALT < 6 U/L (13-61)
[2024-02-06] MEDS: CEFTRIAXONE 2 GM-D5W BAG 2 GM/50 ML BAG IVPB SCH (10:05)
[2024-02-06] MEDS: hydrALAZINE HCL 25 MG TABLET (FP) PO SCH (14:42)
[2024-02-06] MEDS: DEXTROSE 5%-WATER - 1,000 ML IV SCH (14:42)
[2024-02-07] MEDS: hydrALAZINE HCL 50 MG TABLET (FP) PO SCH (21:55)
[2024-02-08 08:20] LABS: HEMATOCRIT 36.7 % (35.4-49); HEMOGLOBIN 11.9 GM/dL (11.7-16.9); MCH 31.1 pg (25.7-33.7); MCHC 32.4 g/dl (32.0-35.9); MEAN CELL VOLUME 96.2 fl (80-96); MEAN PLT VOLUME 9.2 fl (7.5-11.1); PLATELET COUNT 243 10^3/uL (134-434); RBC 3.81 M/mm3 (4.00-5.60); RDW 15.9 % (11.9-15.9); WHITE BLOOD COUNT 12.8 K/mm3 (4.0-10.0)
[2024-02-08 08:27] LABS: CHLORIDE 120 mmol/L (98-107); POTASSIUM 3.9 mmol/L (3.5-5.1); SODIUM 150 mmol/L (136-145)
[2024-02-08 08:29] LABS: CALCIUM 8.4 mg/dL (8.5-10.1)
[2024-02-08 08:30] LABS: ALBUMIN 2.6 g/dl (3.4-5.0); ANION GAP 5 mmol/L (4-13); BLOOD UREA NITROGEN 25.9 mg/dL (7-18); CO2 26 mmol/L (21-32); GLUCOSE,RANDOM 79 mg/dL (74-106)
[2024-02-08 08:33] LABS: CREATININE 0.8 mg/dL (0.55-1.3); SGOT/AST 16 U/L (15-37)
[2024-02-08 08:35] LABS: BILIRUBIN,TOTAL 0.9 mg/dL (0.2-1); TOT PROT 5.5 g/dl (6.4-8.2)
[2024-02-08 08:36] LABS: ALK PHOS 116 U/L (45-117)
[2024-02-08 08:47] LABS: SGPT/ALT < 6 U/L (13-61)
[2024-02-08 10:13] LABS: ANISOCYTOSIS 1+; MACROCYTOSIS 1+
[2024-02-08] MEDS ORDERED: DEXTROSE 5%-WATER - 1,000 ML IV SCH (12:45)
[2024-02-08] MEDS: DEXTROSE 5%-WATER - 1,000 ML IV SCH (16:11)
[2024-02-08] MEDS: MIRTAZAPINE 15 MG TABLET (FP) PO SCH (22:22)
[2024-02-09] MEDS ORDERED: LIDOCAINE HCL 2% JELLY 11 ML TP ONE (08:08)
[2024-02-09] MEDS: LIDOCAINE HCL 2% JELLY (30 ML/TUBE) TP ONE (08:33)
[2024-02-09] MEDS ORDERED: METOPROLOL TARTRATE 5 MG/5 ML VIAL IVPUSH PRN (09:07)
[2024-02-09] MEDS: LACTATED RINGERS SOLUTION 1,000 ML IV SCH (09:14)
[2024-02-09] MEDS: DEXTROSE 5%-WATER - 1,000 ML IV SCH (10:18)
[2024-02-09] MEDS: CARBIDOPA/LEVODOPA 25/100 TABLET (FP) PO SCH (10:19)
[2024-02-09] MEDS: CEFTRIAXONE 2 GM-D5W BAG 2 GM/50 ML BAG IVPB SCH (10:19)
[2024-02-09] MEDS: MAGNESIUM OXIDE 400 MG TABLET (FP) PO SCH (10:19)
[2024-02-09] MEDS: FINASTERIDE 5 MG TABLET (FP) PO SCH (10:20)
[2024-02-09] MEDS: hydrALAZINE HCL 50 MG TABLET (FP) PO SCH (14:18)
[2024-02-09] MEDS: ARTIFICIAL TEARS OPHTHALMIC DROPS OU SCH (16:24)
[2024-02-09] MEDS: MIRTAZAPINE 15 MG TABLET (FP) PO SCH (21:03)
[2024-02-10] MEDS: CEFTRIAXONE 2 GM-D5W BAG 2 GM/50 ML BAG IVPB SCH (09:33)
[2024-02-10] MEDS: MEGESTROL ACETATE 400 MG/10 ML UNIT DOSE CUP PO SCH (12:49)
[2024-02-10] MEDS: ASCORBIC ACID 250 MG TABLET (FP) PO SCH (18:18)
[2024-02-10] MEDS: MULTIVITAMINS (DAILY MVI) TABLET (FP) PO SCH (18:18)
[2024-02-11 07:01] LABS: BASO % 0.4 % (0-2.0); EOS % 1.8 % (0-4.5); HEMATOCRIT 34.3 % (35.4-49); HEMOGLOBIN 11.3 GM/dL (11.7-16.9); MCH 31.9 pg (25.7-33.7); MCHC 32.8 g/dl (32.0-35.9); MEAN CELL VOLUME 97.1 fl (80-96); MEAN PLT VOLUME 9.6 fl (7.5-11.1); MONO % 9.8 % (3.8-10.2); PLATELET COUNT 262 10^3/uL (134-434); RBC 3.54 M/mm3 (4.00-5.60); RDW 15.5 % (11.9-15.9); WHITE BLOOD COUNT 9.7 K/mm3 (4.0-10.0)
[2024-02-11 07:19] LABS: POTASSIUM 3.8 mmol/L (3.5-5.1)
[2024-02-11 07:29] LABS: CALCIUM 8.1 mg/dL (8.5-10.1)
[2024-02-11 07:33] LABS: CREATININE 0.8 mg/dL (0.55-1.3)
[2024-02-12 05:25] VITALS: RESP 18
[2024-02-12 16:08] VITALS: BP 126/88; PULSE 70; TEMP 98.2
== END 2024-02-12 17:12 | DRG 871 ==
LOC: JER 17:17 → JERBED 21:31 → J4W 22:28
PROVIDERS: ADMIT Internal Medicine; ATTEND Internal Medicine
PROC: 0TJB8ZZ Inspection of Bladder, Via Natural or Artificial Opening Endoscopic (ICD-10-PCS; principal; 2024-02-09 08:00)
DX: A41.59 Other Gram-negative sepsis (principal); J96.01 Acute respiratory failure with hypoxia; R53.2 Functional quadriplegia; E87.20 Acidosis, unspecified; N39.0 Urinary tract infection, site not specified; E87.0 Hyperosmolality and hypernatremia; G20.A1 Parkinson's disease without dyskinesia, without mention of fluctuations; F03.90 Unspecified dementia, unspecified severity, without behavioral disturbance, psychotic disturbance, mood disturbance, and anxiety; N32.0 Bladder-neck obstruction; R31.0 Gross hematuria
CPT/HCPCS: 0241U-QW; 36415; 36600; 71045-TC-FY; 76604; 76775-TC; 80048; 80053; 81003; 82570; 82803; 83605; 83735; 84100; 84484; 84540; 85025; 85610; 85730; 86850; 86900; 86901; 87040; 87077; 87086; 87186; 87635; 93005; 93010; 93308; 94640; 94760; 99291; G0480; J0131

== ENCOUNTER 2024-02-17 14:52 | Emergency (ER) | payer OTHER, MEDICARE ==
[2024-02-17 15:11] VITALS: BMI 22.8
[2024-02-17 20:01] LABS: CALCIUM 8.5 mg/dL (8.5-10.1)
[2024-02-17 20:02] LABS: ALBUMIN 2.8 g/dl (3.4-5.0); BLOOD UREA NITROGEN 24.5 mg/dL (7-18)
[2024-02-17 20:06] LABS: CREATININE 1.1 mg/dL (0.55-1.3)
[2024-02-17 20:07] LABS: TOT PROT 6.1 g/dl (6.4-8.2)
[2024-02-17 20:57] VITALS: BP 124/93; PULSE 78; RESP 17; TEMP 98.4
== END 2024-02-17 21:00 | disposition home or self-care (01) ==
LOC: JER 14:52
PROC: 0T2BX0Z Change Drainage Device in Bladder, External Approach (ICD-10-PCS; principal; 2024-02-17)
DX: Z46.6 Encounter for fitting and adjustment of urinary device (principal)
CPT/HCPCS: 36415; 80053; 99283-25

== ENCOUNTER 2024-04-04 12:56 | Emergency (ER) | payer OTHER, MEDICARE ==
[2024-04-04 14:39] VITALS: RESP 16; TEMP 97.2; BMI 24.6
[2024-04-04 19:04] LABS: EPI CELLS 1 /uL (0-25.1); HYALINE CASTS 1 /uL (0-3.1); PH,URINE 7.5 (5.0-8.0); URINE APPEARANCE TURBID; URINE BACTERIA 4208 /uL (0-1359); URINE BILIRUBIN NEGATIVE (NEGATIVE); URINE COLOR DK YELLOW; URINE GLUCOSE (UA) NEGATIVE (NEGATIVE); URINE KETONE TRACE (NEGATIVE); URINE LEUK ESTERASE 3+ (NEGATIVE); URINE NITRITE POSITIVE (NEGATIVE); URINE PROTEIN 2+ (NEGATIVE); URINE WBC 11095 /uL (0-25.8)
[2024-04-04 20:10] LABS: URINE RBC 517.9 /uL (0-23.9)
[2024-04-05 00:45] VITALS: BP 140/78; PULSE 88
== END 2024-04-05 00:43 ==
LOC: JER 12:56
PROC: 0T2BX0Z Change Drainage Device in Bladder, External Approach (ICD-10-PCS; principal; 2024-04-04)
DX: T83.098A Other mechanical complication of other urinary catheter, initial encounter (principal); G20.B1 Parkinson's disease with dyskinesia, without mention of fluctuations; R00.0 Tachycardia, unspecified
CPT/HCPCS: 81003; 87086; 87186; 99283-25